=== PATIENT | female | born 1990 | race Caucasian/White ===

== ENCOUNTER 2017-02-26 22:25 | Emergency (ER) | payer OTHER ==
[~2017-02-26 22:25] MED LIST: AMOXICILLIN PO; BACTRIM DS TABL1 TA1 PO; BACTRIM DS TABL1 TAB PO; CEFZIL PO; DELSYM30 MG/5 ML PO; FLAGYL PO; IBUPROFEN PO; KEFLEX PO; KEFLEX500 MG PO; KLONOPIN PO; LEVAQUIN PO; LEXAPRO PO; LO/OVRAL-281 TAB PO; NAPROXEN PO; NO MEDICATIONS; PAXIL PO; PHENERGAN PO; PRENATAL MULITV1 TAB PO; TEGRETOL PO; TORADOL10 MG PO; TYLENOL #3 PO; ULTRAM PO; VICODIN 5/1 TAB 5/50 PO; [UNRECOGNIZED DRUG - OTHER]
== END 2017-02-27 02:20 | disposition home or self-care (01) ==
LOC: CED 22:25
DX: O99.322 Drug use complicating pregnancy, second trimester (principal); F15.90 Other stimulant use, unspecified, uncomplicated; O99.342 Other mental disorders complicating pregnancy, second trimester; F41.9 Anxiety disorder, unspecified; O99.332 Smoking (tobacco) complicating pregnancy, second trimester; F17.200 Nicotine dependence, unspecified, uncomplicated
CPT/HCPCS: 84703; 99284

== ENCOUNTER 2017-04-28 04:11 | Emergency (ER) | payer OTHER | END 2017-04-28 04:15 | disposition left against medical advice (07) | LOC: CED 04:11 | DX: Z53.21 Procedure and treatment not carried out due to patient leaving prior to being seen by health care provider (principal) ==